=== PATIENT | male | born 1970 ===

== ENCOUNTER 2018-03-08 10:53 | Emergency (ER) | payer OTHER ==
[2018-03-08 11:00] VITALS: BP 127/86; PULSE 97; RESP 20; TEMP 98.6; O2SAT 96
[2018-03-08] MEDS ORDERED: Albuterol-Ipratrop 3 mg / 0.5 (3 ml) UD ONE ×2 (11:52→12:11)
[2018-03-08] MEDS ORDERED: Albuterol-Ipratrop 3 mg / 0.5 (3 ml) UD INH STA ×2 (12:14→12:16)
--- NOTE | 2018-03-08 13:31 | ED PDOC ---
History of Present Illness History of Present Illness: 47 yo M, no PMHx presentes with 2 weeks of worsening cough. Pt states he was seen at [facility] but was not given any treatments or medication. PT admits to smoking heavily but states he wants to quit smoking. NO sick contacts. no recent travel, no recent illness. Pt states cough is productive of yellow sputum. HPI: Influenza Time Seen by Provider: 03/08/18 12:14 Chief Complaint: Cough, Cold, Congestion History Per: Patient Exam Limitations: no limitations Onset/Duration Of Symptoms: Days Symptoms include: bodyaches, sore throat, cough Sick Contacts (Context): None Hx Influenza Vaccination: No Past Medical History Vital Signs: Last Vital Signs Temp 98.6 F 03/08/18 10:59 Pulse 97 H 03/08/18 10:59 Resp 20 03/08/18 10:59 BP 127/86 03/08/18 10:59 Pulse Ox 96 03/08/18 10:59 - Medical History PMH: Back Problems, Bipolar Disorder, Depression, Schizophrenia Denies: Diabetes, Hepatitis, HIV, HTN, Chronic Kidney Disease, Seizures, Sexually Transmitted Disease - Family History Family History: States: Unknown Family Hx - Social History Current smoker - smoking cessation education provided: Yes SMOKER/PACKS PER DAY:: 1 Alcohol: Social Drugs: Denies - Immunization History Hx Tetanus Toxoid Vaccination: No Hx Influenza Vaccination: No Hx Pneumococcal Vaccination: No - Home Medications Home Medications: Ambulatory Orders Medication Instructions Recorded PARoxetine [Paxil] 20 mg PO DAILY #0 tab 01/26/15 Oxycodone HCl/Acetaminophen 1 tab PO Q6 PRN 03/12/16 [Endocet 325 mg-10 mg] busPIRone [Buspar] 20 mg PO DAILY 03/12/16 Albuterol HFA [Ventolin HFA 90 1 puff IH Q4 #1 inhaler 01/01/18 mcg/actuation (8 g)] Benzonatate [Tessalon Perles] 200 mg PO TID PRN #15 sgl 01/01/18 Ibuprofen [Motrin] 600 mg PO Q6 #30 tab 01/01/18 predniSONE [Prednisone] 60 mg PO DAILY #12 tab 01/01/18 Albuterol HFA [Ventolin HFA 90 2 puff IH [id number] #1 pump 03/08/18 mcg/actuation (8 g)] Azithromycin [Z-Oh] 250 mg PO DAILY #6 tab 03/08/18 Nicotine [Nicotine Patch] 1 each TD TID #90 patch.td24 03/08/18 - Allergies Allergies/Adverse Reactions: Allergies Allergy/AdvReac Type Severity Reaction Status Date / Time No Known Allergies Allergy Verified 03/12/16 16:27 Medical Decision Making Medical Decision Making: Bronchitis. -CXR normal. -Influenza negative. Symptoms improved with duonebs. Return parameters discussed. - ECG O2 Sat by Pulse Oximetry: 96 Disposition - Clinical Impression Clinical Impression: Chronic cough - Disposition Disposition Time: 13:15 Condition: IMPROVED Additional Instructions: Take antibiotics as prescribed. Use Nicotine patch to stop smoking. Follow up with primary medical doctor. Prescriptions: Albuterol HFA [Ventolin HFA 90 mcg/actuation (8 g)] 2 puff IH [id number] #1 pump Azithromycin [Z-Oh] 250 mg PO DAILY #6 tab Nicotine [Nicotine Patch] 1 each TD TID #90 patch.td24 Instructions: Acute Bronchitis, Adult (DC), Cough, Runny Nose, and the Common Cold (DC) Forms: [employer] (Korean) Print Language: [place] ISLANDER
--- NOTE | 2018-03-08 13:59 | RAD ---
Date of service: 03/08/2018 HISTORY: Cough. COMPARISON: No prior. TECHNIQUE: Chest PA and lateral FINDINGS: LUNGS: No active pulmonary disease. PLEURA: No significant pleural effusion identified. No pneumothorax apparent. CARDIOVASCULAR: No radiographic findings to suggest acute or significant cardiovascular disease. OSSEOUS STRUCTURES: No significant abnormalities. VISUALIZED UPPER ABDOMEN: Normal. OTHER FINDINGS: None. IMPRESSION: No active disease.
== END 2018-03-08 13:34 | disposition home or self-care (01) ==
LOC: H.ER 10:53
DX: R05 Cough (principal)

== ENCOUNTER 2018-03-16 13:44 | Observation (INO) | payer OTHER ==
[2018-03-16] MEDS ORDERED: Sodium Chloride 0.9% 1,000 ML IV STA (14:31)
[2018-03-16] MEDS ORDERED: Albuterol-Ipratrop 3 mg / 0.5 (3 ml) UD IH STA ×2 (14:32→14:33)
[2018-03-16] MEDS ORDERED: Albuterol-Ipratrop 3 mg / 0.5 (3 ml) UD INH STA (14:32)
--- NOTE | 2018-03-16 14:39 | ED PDOC ---
HPI: SOB/CHF/COPD Time Seen by Provider: 03/16/18 14:26 Chief Complaint (Nursing): Shortness Of Breath Chief Complaint (Provider): Dyspnea History Per: Patient History/Exam Limitations: no limitations Onset/Duration Of Symptoms: Days (3 months) Additional Complaint(s): Pt. with dyspnea, cough, yellow phlegm for 3 months, worse recently. No chest pain, headaches, dizziness. Has nasal congestion, runny nose. No abd pain. Seen recently and given zpak. Pt. did not feel better despite filling rx. Past Medical History Reviewed: Nursing Documentation, Vital Signs Vital Signs: Last Vital Signs Temp 97.5 F L 03/16/18 13:58 Pulse 109 H 03/16/18 13:58 Resp 18 03/16/18 13:58 BP 133/97 H 03/16/18 13:58 Pulse Ox 87 L 03/16/18 13:58 - Medical History PMH: Back Problems, Bipolar Disorder, Depression, Schizophrenia Denies: Diabetes, Hepatitis, HIV, HTN, Chronic Kidney Disease, Seizures, Sexually Transmitted Disease - Surgical History Surgical History: No Surg Hx - Family History Family History: States: Unknown Family Hx - Social History Current smoker - smoking cessation education provided: Yes Alcohol: None - Immunization History Hx Tetanus Toxoid Vaccination: No Hx Influenza Vaccination: No Hx Pneumococcal Vaccination: No - Home Medications Home Medications: Ambulatory Orders Medication Instructions Recorded PARoxetine [Paxil] 20 mg PO DAILY #0 tab 01/26/15 Oxycodone HCl/Acetaminophen 1 tab PO Q6 PRN 03/12/16 [Endocet 325 mg-10 mg] busPIRone [Buspar] 20 mg PO DAILY 03/12/16 Albuterol HFA [Ventolin HFA 90 1 puff IH Q4 #1 inhaler 01/01/18 mcg/actuation (8 g)] Benzonatate [Tessalon Perles] 200 mg PO TID PRN #15 sgl 01/01/18 Ibuprofen [Motrin] 600 mg PO Q6 #30 tab 01/01/18 predniSONE [Prednisone] 60 mg PO DAILY #12 tab 01/01/18 Albuterol HFA [Ventolin HFA 90 2 puff IH [id number] #1 pump 03/08/18 mcg/actuation (8 g)] Azithromycin [Z-Oh] 250 mg PO DAILY #6 tab 03/08/18 Nicotine [Nicotine Patch] 1 each TD TID #90 patch.td24 03/08/18 - Allergies Allergies/Adverse Reactions: Allergies Allergy/AdvReac Type Severity Reaction Status Date / Time No Known Allergies Allergy Verified 03/12/16 16:27 Review of Systems ROS Statement: Except As Marked, All Systems Reviewed And Found Negative Respiratory: Positive for: Cough, Shortness of Breath, Sputum, Wheezing Physical Exam - Reviewed Nursing Documentation Reviewed: Yes Vital Signs Reviewed: Yes - Physical Exam Appears: Positive for: Uncomfortable Head Exam: Positive for: ATRAUMATIC, NORMAL INSPECTION, NORMOCEPHALIC Skin: Positive for: Normal Color, Warm, DRY Eye Exam: Positive for: EOMI, Normal appearance, PERRL ENT: Positive for: Nasal Congestion Neck: Positive for: Normal, Painless ROM, Supple Cardiovascular/Chest: Positive for: Tachycardia Respiratory: Positive for: Decreased Breath Sounds, Wheezing. Negative for: Accessory Muscle Use Gastrointestinal/Abdominal: Positive for: Normal Exam, Soft. Negative for: Tenderness Back: Positive for: Normal Inspection. Negative for: L CVA Tenderness, R CVA Tenderness Extremity: Positive for: Normal ROM. Negative for: Tenderness, Pedal Edema Neurologic/Psych: Positive for: Alert, Oriented - Laboratory Results Result Diagrams: 03/16/18 15:14 - ECG ECG: Positive for: Interpreted By Me, Viewed By Me ECG Rhythm: Positive for: Sinus Tachycardia O2 Sat by Pulse Oximetry: 87 Pulse Ox Interpretation: Abnormal Interpretation Of Abnormal: improved with oxygen. - Radiology X-Ray: Read By Radiologist X-Ray Interpretation: No Acute Disease - Progress ED Course And Treament: 1526: Stable. AAOx3. Feels better. Oxygen level 96% with 2L nasal. Has no dyspnea currently. Is a heavy smoker. Spoke with Dr. Hampton. Will admit for Dr. Thomas. Wants antibiotics and states it is ok to give with acute bronchitis. - Critical Care Total Time (In Min): 30 Documented Critical Care: Time excludes all time spent performint seperately billable procedures Disposition - Clinical Impression Clinical Impression: Bronchitis, Dyspnea - Patient ED Disposition Is Patient to be Admitted: Yes Counseled Patient/Family Regarding: Studies Performed, Diagnosis - Disposition Disposition Time: 15:49 Condition: FAIR - Pt Status Changed To: Hospital Disposition Of: Observation - POA Present On Arrival: None
[2018-03-16] MEDS ORDERED: Albuterol-Ipratrop 3 mg / 0.5 (3 ml) UD ONE (14:40)
[2018-03-16 14:56] LABS: ABG ALLEN TEST YES; ARTERIAL BLOOD GAS HCO3 25.2 mmol/L (21-28); ARTERIAL BLOOD GAS O2 SAT 100.1 % (95-98); ARTERIAL BLOOD GAS PCO2 53 mm/Hg (35-45); ARTERIAL BLOOD GAS PH 7.32 (7.35-7.45); ARTERIAL BLOOD GAS PO2 110 mm/Hg (80-100); ARTERIAL BLOOD GAS TCO2 28.9 mmol/L (22-28)
--- NOTE | 2018-03-16 14:56 | RAD ---
Date of service: 03/16/2018 HISTORY: Sepsis Patient COMPARISON: 03/08/2018. FINDINGS: LUNGS: The lungs are well inflated and clear. PLEURA: No pleural effusions or pneumothorax. CARDIOVASCULAR: The heart is normal in size. No aortic atherosclerotic calcification present. OSSEOUS STRUCTURES: Within normal limits for the patient's age. VISUALIZED UPPER ABDOMEN: Normal. OTHER FINDINGS: None. IMPRESSION: No active pulmonary disease.
[2018-03-16] MEDS ORDERED: Azithromycin 500 MG IV IVPB ONE (15:29)
[2018-03-16 15:47] LABS: BASO % 0.5 % (0.0-2.0); EOS # 0.9 K/uL (0.0-0.7); EOS % 8.5 % (0.0-4.0); HEMOGLOBIN 14.3 g/dL (12.0-18.0); LYMPH # 2.5 K/uL (1.0-4.3); LYMPH % 24.3 % (20.0-40.0); MEAN CELL VOLUME 94.9 fl (80.0-94.0); MEAN CORPUSCULAR HEMOGLOBIN 32.9 pg (27.0-31.0); MEAN CORPUSCULAR HGB CONC 34.7 g/dL (33.0-37.0); MEAN PLATELET VOLUME 8.6 fl (7.2-11.7); MONO # 0.7 K/uL (0.0-0.8); MONO % 7.2 % (0.0-10.0); NEUT # 6.2 K/uL (1.8-7.0); NEUT % 59.5 % (50.0-75.0); NRBC % 0.3 % (0.0-0.0); RBC 4.34 Mil/uL (4.40-5.90); RED CELL DISTRIBUTION WIDTH 13.3 % (11.5-14.5); WHITE BLOOD COUNT 10.4 K/uL (4.8-10.8)
[2018-03-16 15:51] LABS: ALB/GLOB RATIO 1.1 (1.0-2.1); ALBUMIN 4.2 g/dL (3.5-5.0); ALT/SGPT 25 U/L (21-72); AST/SGOT 26 U/L (17-59); B-TYPE NATRIURETIC PEPTIDE 47.8 pg/ml (0-450); BLOOD UREA NITROGEN 10 mg/dl (9-20); CALCIUM 9.6 mg/dL (8.4-10.2); GFR NON-AFRICAN AMERICAN > 60
[2018-03-16 16:54] LABS: INR 1.1; PROTHROMBIN TIME 12.1 Seconds (9.8-13.1)
[2018-03-16 16:57] LABS: PARTIAL THROMBOPLASTIN TIME 33.4 Seconds (25.6-37.1)
[2018-03-16] MEDS ORDERED: Oxycodone/Acetaminophen 5/325 mg Tab ONE (20:46)
[2018-03-16] MEDS: Oxycodone/Acetaminophen 5/325 mg Tab PO PRN (20:48)
[2018-03-16] MEDS ORDERED: methylPREDNISolone 40 MG in Sodium Chloride 0.9% 50 ML IVPB SCH (22:00)
[2018-03-16] MEDS: MethylPREDNISolone 40 mg Vial IVP SCH (22:30)
[2018-03-16] MEDS: Albuterol-Ipratrop 3 mg / 0.5 (3 ml) UD INH SCH (23:13)
[2018-03-16] MEDS: Pantoprazole 40 MG in Sodium Chloride 0.9% 100 ML IVPB SCH (23:47)
[2018-03-17] MEDS: Oxycodone/Acetaminophen 5/325 mg Tab PO PRN ×2 (03:36→09:47)
[2018-03-17] MEDS: MethylPREDNISolone 40 mg Vial IVP SCH ×2 (03:38→09:48)
[2018-03-17] MEDS: Albuterol-Ipratrop 3 mg / 0.5 (3 ml) UD INH SCH ×3 (04:05→11:33)
[2018-03-17] MEDS: Pantoprazole 40 MG in Sodium Chloride 0.9% 100 ML IVPB SCH ×2 (04:40→09:51)
[2018-03-17 05:57] LABS: HEMOGLOBIN 13.5 g/dL (12.0-18.0); MEAN CELL VOLUME 95.9 fl (80.0-94.0); MEAN CORPUSCULAR HEMOGLOBIN 32.7 pg (27.0-31.0); MEAN CORPUSCULAR HGB CONC 34.1 g/dL (33.0-37.0); RBC 4.12 Mil/uL (4.40-5.90); WHITE BLOOD COUNT 9.6 K/uL (4.8-10.8)
[2018-03-17 06:21] LABS: ALB/GLOB RATIO 1.1 (1.0-2.1); ALBUMIN 3.7 g/dL (3.5-5.0); ALT/SGPT 19 U/L (21-72); AST/SGOT 24 U/L (17-59); BLOOD UREA NITROGEN 14 mg/dl (9-20); CALCIUM 9.4 mg/dL (8.4-10.2); GFR NON-AFRICAN AMERICAN > 60
[2018-03-17 06:24] LABS: T4 7.45 ug/dl (5.5-11.0)
[2018-03-17] MEDS ORDERED: Pneumococcal 23-Valent Vaccine IM ONE (06:30)
[2018-03-17] MEDS ORDERED: Influenza Vaccine (5 YR UP)/PF 60 MCG/0.5 ML SYR IM ONE (06:30)
[2018-03-17 06:33] LABS: URINE BILIRUBIN NEGATIVE (NEGATIVE); URINE BLOOD NEGATIVE (NEGATIVE); URINE CLARITY CLEAR (Clear); URINE COLOR STRAW (YELLOW); URINE GLUCOSE (UA) >=500 mg/dL (Normal); URINE LEUKOCYTE ESTERASE NEG Leu/uL (Negative); URINE PROTEIN NEGATIVE (NEGATIVE); URINE UROBILINOGEN 0.2-1.0 mg/dL (0.2-1.0)
[2018-03-17] MEDS ORDERED: buPROPion SR 150 MG TABLET PO SCH (09:00)
[2018-03-17] MEDS ORDERED: Azithromycin 500 MG in Sodium Chloride 0.9% 250 ML IVPB SCH (09:00)
[2018-03-17] MEDS ORDERED: Sodium Chloride 3% for Inhalation 4 ML VIAL.NEB IH PRN (09:21)
[2018-03-17 10:37] VITALS: RESP 18
[2018-03-17 11:53] VITALS: BP 106/69; PULSE 104; TEMP 97.5; O2SAT 97
--- NOTE | 2018-03-17 16:26 | CP.PCM.HP ---
History of Present Illness - History of Present Illness History of Present Illness: CC: SOB. 47 y/o M, H PMHx. Bipolar Disorder, Depression, Schizophrenia, Chronic back pain 2nd to herniated disk (as per Pt). Pt came to [facility] on 03/16/18 for evaluation of gradually increased SOB that began about 3 months ago with no relief, associated to wheezing and cough with small amount of whitish sputum, non bloody. Worsening symptoms: Chronic back pain, increased when coughing. Aggravated factor: Walking. Pt denied: Fever, chills, n/v/d, abdominal pain, urinary symptoms, CP, palpitations, dyspnea, dizziness, headache, sick contact. CXR: No active pulmonary disease. Present on Admission - Present on Admission Any Indicators Present on Admission: No Review of Systems - Constitutional Constitutional: Other (negative) - EENT Eyes: Other (negative) Ears: Other (negative) Nose/Mouth/Throat: Other (negative) - Cardiovascular Cardiovascular: Other (negative) - Respiratory Respiratory: Cough, Dyspnea, Wheezing, Chest Congestion - Gastrointestinal Gastrointestinal: Other (negative) - Genitourinary Genitourinary: Other (negative) - Musculoskeletal Musculoskeletal: Back Pain - Integumentary Integumentary: Other (negative) - Neurological Neurological: Other (negative) - Psychiatric Psychiatric: Anxiety - Endocrine Endocrine: Other (negative) - Hematologic/Lymphatic Hematologic: Other (negative) Past Patient History - Infectious Disease Hx of Infectious Diseases: None - Past Medical History & Family History Past Medical History?: Yes Pertinent Family History: Unknown - Past Social History Smoking Status: Current Some Days Smoker (Pt admits current heavy smoker in his last vist to [facility] on 03/08/18.) Alcohol: None Drugs: Denies Home Situation {Lives}: Alone - CARDIAC Hx Cardiac Disorders: No - PULMONARY Hx Respiratory Disorders: Yes Hx Bronchitis: Yes - NEUROLOGICAL Hx Neurological Disorder: No Hx Seizures: No - HEENT Hx HEENT Problems: No - RENAL Hx Chronic Kidney Disease: No - ENDOCRINE/METABOLIC Hx Endocrine Disorders: No - HEMATOLOGICAL/ONCOLOGICAL Hx Blood Disorders: No Hx Human Immunodeficiency Virus (HIV): No - INTEGUMENTARY Hx Dermatological Problems: No - MUSCULOSKELETAL/RHEUMATOLOGICAL Hx Musculoskeletal Disorders: Yes Hx Falls: Yes Hx Herniated Disk: Yes - GASTROINTESTINAL Hx Gastrointestinal Disorders: No - GENITOURINARY/GYNECOLOGICAL Hx Genitourinary Disorders: No Hx Sexually Transmitted Disorders: No - PSYCHIATRIC Hx Psychophysiologic Disorder: Yes Hx Bipolar Disorder: Yes Hx Depression: Yes Hx Schizophrenia: Yes Hx Substance Use: No - SURGICAL HISTORY Hx Surgeries: No - ANESTHESIA Hx Anesthesia: No Meds Home Medications: Home Medication List Medication Instructions Recorded Confirmed Type Albuterol/Ipratropium [Duoneb 3 3 ml INH RQ4 #90 neb 03/17/18 Rx mg/0.5 mg (3 ml) UD] Azithromycin [Zithromax] 500 mg PO DAILY #5 tablet 03/17/18 Rx Pantoprazole [Protonix] 40 mg PO DAILY #30 ect 03/17/18 Rx oxyCODONE/Acetaminophen [Percocet 1 tab PO Q6 PRN #20 tab 03/17/18 Rx 5/325 mg Tab] predniSONE [predniSONE Tab] 5 mg PO DAILY #56 tab 03/17/18 Rx Allergies/Adverse Reactions: Allergies Allergy/AdvReac Type Severity Reaction Status Date / Time No Known Allergies Allergy Verified 03/12/16 16:27 Physical Exam - Constitutional Appears: No Acute Distress - Head Exam Head Exam: NORMAL INSPECTION - Eye Exam Eye Exam: PERRL - ENT Exam ENT Exam: Normal Exam - Neck Exam Neck exam: Positive for: Normal Inspection - Respiratory Exam Respiratory Exam: Decreased Breath Sounds (at bases), Rhonchi (few at bases). absent: Wheezes - Cardiovascular Exam Cardiovascular Exam: REGULAR RHYTHM - GI/Abdominal Exam GI & Abdominal Exam: Normal Bowel Sounds, Soft - Extremities Exam Extremities exam: Positive for: normal inspection - Back Exam Back exam: NORMAL INSPECTION - Neurological Exam Neurological exam: Alert, Oriented x3 Additional comments: No motor/sensory deficit - Psychiatric Exam Psychiatric exam: Anxious - Skin Skin Exam: Warm Results - Vital Signs Recent Vital Signs: Last Vital Signs Temp 97.5 F L 03/17/18 11:51 Pulse 104 H 03/17/18 11:51 Resp 18 03/17/18 11:51 BP 106/69 03/17/18 11:51 Pulse Ox 97 03/17/18 11:51 reviewed Brooke - Labs Result Diagrams: 03/17/18 05:20 03/17/18 05:20 Labs: Laboratory Results - last 24 hr 03/16/18 03/16/18 03/17/18 15:40 16:40 05:20 WBC 9.6 RBC 4.12 L Hgb 13.5 Hct 39.5 MCV 95.9 H MCH 32.7 H MCHC 34.1 RDW 13.0 Plt Count 330 PT 12.1 INR 1.1 APTT 33.4 Sodium Potassium Chloride Carbon Dioxide Anion Gap BUN Creatinine Est GFR ( Amer) Est GFR (Non-Af Amer) Random Glucose Calcium Total Bilirubin AST ALT Alkaline Phosphatase Total Protein Albumin Globulin Albumin/Globulin Ratio Triglycerides Cholesterol LDL Cholesterol Direct HDL Cholesterol Thyroxine (T4) TSH 3rd Generation Urine Color Urine Clarity Urine pH Ur Specific [place] Urine Protein Urine Glucose (UA) Urine Ketones Urine Blood Urine Nitrate Urine Bilirubin Urine Urobilinogen Ur Leukocyte Esterase Urine RBC (Auto) Urine Microscopic WBC Influenza Typ A,B (EIA) Negative for flu a/b 03/17/18 03/17/18 03/17/18 05:20 05:20 06:00 WBC RBC Hgb Hct MCV MCH MCHC RDW Plt Count PT INR APTT Sodium 139 Potassium 4.2 Chloride 106 Carbon Dioxide 26 Anion Gap 11 BUN 14 Creatinine 0.6 L Est GFR ( Amer) > 60 Est GFR (Non-Af Amer) > 60 Random Glucose 183 H Calcium 9.4 Total Bilirubin 0.2 AST 24 ALT 19 L D Alkaline Phosphatase 55 Total Protein 7.0 Albumin 3.7 Globulin 3.4 Albumin/Globulin Ratio 1.1 Triglycerides 37 Cholesterol 171 LDL Cholesterol Direct 113 HDL Cholesterol 54 Thyroxine (T4) 7.45 TSH 3rd Generation 0.09 L Urine Color Straw Urine Clarity Clear Urine pH 7.0 Ur Specific [place] 1.012 Urine Protein Negative Urine Glucose (UA) >=500 Urine Ketones Negative Urine Blood Negative Urine Nitrate Negative Urine Bilirubin Negative Urine Urobilinogen 0.2-1.0 Ur Leukocyte Esterase Neg Urine RBC (Auto) 1 Urine Microscopic WBC < 1 Influenza Typ A,B (EIA) reviewed J.P. - Imaging and Cardiology Chest x-ray Status: Report reviewed by me (J.P.) Assessment & Plan (1) COPD exacerbation Status: Acute Priority: High (2) Chronic back pain Status: Chronic Priority: High (3) History of depression Status: Chronic Priority: Medium (4) Anxiety Status: Chronic Priority: Medium - Assessment and Plan (Free Text) Plan: Pt improved with Zithormax, Ceftriaxone, Duoneb, Solu-Medrol, Pt is stable to be discharged, see instruction medications HELEN, f/u with PMD, Dr Connelly in a week. - Date & Time Date: 03/17/18 Time: 13:00
--- NOTE | 2018-03-17 19:31 | CARD ---
APPROVED REPORT Date of service: 03/16/2018 EKG Measurement Heart [id number] <Conclusion> Normal sinus rhythm Left atrial enlargement Right axis deviation Incomplete right bundle branch block Abnormal ECG
== END 2018-03-17 13:48 | disposition home or self-care (01) ==
LOC: H.ER 13:44 → H.ERHOLD 15:25 → H.TEL 21:17
PROVIDERS: ADMIT Internal Medicine Pulmonary Disease; ATTEND Internal Medicine Pulmonary Disease
DX: J44.1 Chronic obstructive pulmonary disease with (acute) exacerbation (principal); G89.29 Other chronic pain; F31.9 Bipolar disorder, unspecified; F20.9 Schizophrenia, unspecified; F17.200 Nicotine dependence, unspecified, uncomplicated; F41.9 Anxiety disorder, unspecified; Z23 Encounter for immunization
CPT/HCPCS: 36415; 71045; 80053; 80061; 81003; 82803; 83735; 83880; 84100; 84436; 84443; 84484; 85025; 85027; 85610; 85730; 87040; 87070; 87086; 87804; 90471; 90732; 93005; 94640; 96374; 99282; C9113; G0008; G0378; J0456; J0696; J1885; J2920; J2930; J7030; Q2035

== ENCOUNTER 2018-05-03 06:34 | Emergency (ER) | payer OTHER ==
[2018-05-03] MEDS ORDERED: Albuterol-Ipratrop 3 mg / 0.5 (3 ml) UD IH STA ×2 (07:20→07:21)
--- NOTE | 2018-05-03 07:23 | ED PDOC ---
HPI: SOB/CHF/COPD Time Seen by Provider: 05/03/18 07:15 Chief Complaint (Nursing): Shortness Of Breath History Per: Patient Onset/Duration Of Symptoms: Persistent Current Symptoms Are (Timing): Still Present Severity: Moderate Associated Symptoms: denies: Fever, Leg/Calf Pain Additional Complaint(s): Non productive cough assoc with SOB and wheezing x few months. Denies fever or chest pain. C/o chronic low back pain, requesting Percocet. Past Medical History Vital Signs: Last Vital Signs Temp 98.3 F 05/03/18 06:55 Pulse 109 H 05/03/18 06:55 Resp 20 05/03/18 06:55 BP 127/75 05/03/18 06:55 Pulse Ox 90 L 05/03/18 06:55 - Medical History PMH: Back Problems, Bipolar Disorder, Bronchitis, Depression, Schizophrenia Denies: Diabetes, Hepatitis, HIV, HTN, Chronic Kidney Disease, Seizures, Sexually Transmitted Disease - Family History Family History: States: Unknown Family Hx - Immunization History Hx Tetanus Toxoid Vaccination: No Hx Influenza Vaccination: No Hx Pneumococcal Vaccination: No - Home Medications Home Medications: Ambulatory Orders Medication Instructions Recorded Albuterol HFA [Ventolin HFA 90 2 puff IH Q4 PRN 03/16/18 mcg/actuation (8 g)] Bupropion HCl [Bupropion Xl] 150 mg PO DAILY 03/16/18 OLANZapine [Zyprexa] 10 mg PO HS 03/16/18 Paroxetine HCl [Paxil] 40 mg PO QAM 03/16/18 hydrOXYzine HCl [Atarax] 50 mg PO HS 03/16/18 Albuterol/Ipratropium [Duoneb 3 3 ml INH RQ4 #90 neb 03/17/18 mg/0.5 mg (3 ml) UD] Azithromycin [Zithromax] 500 mg PO DAILY #5 tablet 03/17/18 Pantoprazole [Protonix] 40 mg PO DAILY #30 ect 03/17/18 oxyCODONE/Acetaminophen [Percocet 1 tab PO Q6 PRN #20 tab 03/17/18 5/325 mg Tab] predniSONE [predniSONE Tab] 5 mg PO DAILY #56 tab 03/17/18 Albuterol HFA [Ventolin HFA 90 2 puff IH Q4H #1 puff 05/03/18 mcg/actuation (8 g)] Azithromycin [Zithromax] 250 mg PO DAILY #6 tab 05/03/18 Prednisone 50 mg PO DAILY #5 tab 05/03/18 oxyCODONE/Acetaminophen [Percocet 1 ea PO Q8 #6 tab 05/03/18 5/325 mg Tab] - Allergies Allergies/Adverse Reactions: Allergies Allergy/AdvReac Type Severity Reaction Status Date / Time No Known Allergies Allergy Verified 03/12/16 16:27 Review of Systems ROS Statement: Except As Marked, All Systems Reviewed And Found Negative Constitutional: Negative for: Fever Respiratory: Positive for: Cough, Shortness of Breath, Wheezing. Negative for: Sputum Musculoskeletal: Positive for: Back Pain Physical Exam - Reviewed Nursing Documentation Reviewed: Yes Vital Signs Reviewed: Yes - Physical Exam Appears: Positive for: Non-toxic, No Acute Distress Head Exam: Positive for: ATRAUMATIC, NORMAL INSPECTION, NORMOCEPHALIC Skin: Positive for: Normal Color, Warm, DRY Eye Exam: Positive for: EOMI, Normal appearance, PERRL ENT: Positive for: Normal ENT Inspection Neck: Positive for: Normal, Painless ROM Cardiovascular/Chest: Positive for: Regular Rate, Rhythm Respiratory: Positive for: Rhonchi, Wheezing Gastrointestinal/Abdominal: Positive for: Normal Exam, Soft Back: Positive for: Normal Inspection, Muscle Spasm. Negative for: Vertebral Tenderness Extremity: Positive for: Normal ROM Neurologic/Psych: Positive for: Alert, Oriented - Laboratory Results Result Diagrams: 05/03/18 08:23 05/03/18 08:23 - ECG O2 Sat by Pulse Oximetry: 90 - Progress Re-evaluation Time: 11:00 Condition: Improved (Lungs scattered rhonchi no wheezing) Disposition - Clinical Impression Clinical Impression: Bronchitis, COPD exacerbation, Chronic back pain - Patient ED Disposition Is Patient to be Admitted: No Counseled Patient/Family Regarding: Studies Performed, Diagnosis, Need For Followup, Rx Given - Disposition Referrals: [facility] [Outside] Disposition: Routine/Home Disposition Time: 11:01 Condition: FAIR Prescriptions: Albuterol HFA [Ventolin HFA 90 mcg/actuation (8 g)] 2 puff IH Q4H #1 puff Azithromycin [Zithromax] 250 mg PO DAILY #6 tab oxyCODONE/Acetaminophen [Percocet 5/325 mg Tab] 1 ea PO Q8 #6 tab Prednisone 50 mg PO DAILY #5 tab Instructions: Acute Bronchitis, Chronic Pain (DC), Chronic Obstructive Pulmon rehan Disease (COPD), Including Emphysema Forms: [employer] ([place])
[2018-05-03] MEDS ORDERED: Albuterol-Ipratrop 3 mg / 0.5 (3 ml) UD ONE (08:34)
[2018-05-03 08:35] LABS: VENOUS BLOOD GAS PCO2 58 mmHg (40-60); VENOUS BLOOD GAS PO2 35 mm/Hg (30-55); VENOUS BLOOD PH 7.29 (7.32-7.43)
[2018-05-03 08:37] LABS: BASO # 0.1 K/uL (0.0-0.2); BASO % 0.9 % (0.0-2.0); EOS # 1.1 K/uL (0.0-0.7); EOS % 14.9 % (0.0-4.0); HEMOGLOBIN 13.8 g/dL (12.0-18.0); LYMPH # 1.1 K/uL (1.0-4.3); LYMPH % 15.6 % (20.0-40.0); MEAN CELL VOLUME 98.1 fl (80.0-94.0); MEAN CORPUSCULAR HEMOGLOBIN 32.7 pg (27.0-31.0); MEAN CORPUSCULAR HGB CONC 33.3 g/dL (33.0-37.0); MONO # 0.7 K/uL (0.0-0.8); MONO % 10.2 % (0.0-10.0); NEUT # 4.3 K/uL (1.8-7.0); NEUT % 58.4 % (50.0-75.0); NRBC % 0.1 % (0.0-0.0); RBC 4.21 Mil/uL (4.40-5.90); RED CELL DISTRIBUTION WIDTH 13.3 % (11.5-14.5); WHITE BLOOD COUNT 7.3 K/uL (4.8-10.8)
[2018-05-03 08:46] LABS: ALB/GLOB RATIO 1.3 (1.0-2.1); ALBUMIN 4.1 g/dL (3.5-5.0); ALT/SGPT 30 U/L (21-72); AST/SGOT 31 U/L (17-59); BLOOD UREA NITROGEN 8 mg/dl (9-20); CALCIUM 8.8 mg/dL (8.4-10.2); GFR NON-AFRICAN AMERICAN > 60
--- NOTE | 2018-05-03 09:39 | RAD ---
Date of service: 05/03/2018 HISTORY: cough COMPARISON: 03/16/2018 FINDINGS: LUNGS: The lungs are hyperinflated and there is peribronchial thickening with chronic changes in both lungs. A branching tubular opacity in the left upper lobe could represent mucous plugging. No focal consolidation. PLEURA: No pleural effusions or pneumothorax. CARDIOVASCULAR: The heart is normal in size. No aortic atherosclerotic calcification present. OSSEOUS STRUCTURES: Within normal limits for the patient's age. VISUALIZED UPPER ABDOMEN: Normal. OTHER FINDINGS: None. IMPRESSION: No active pulmonary disease. COPD.
[2018-05-03 12:26] VITALS: BP 115/84; PULSE 84; RESP 17; TEMP 98.4; O2SAT 97
--- NOTE | 2018-05-04 19:07 | CARD ---
APPROVED REPORT Date of service: 05/03/2018 EKG Measurement Heart [id number] <Conclusion> Sinus tachycardia Possible Left atrial enlargement Incomplete right bundle branch block Prolonged QT Abnormal ECG
== END 2018-05-03 11:20 | disposition home or self-care (01) ==
LOC: H.ER 06:34
DX: J40 Bronchitis, not specified as acute or chronic (principal); J44.1 Chronic obstructive pulmonary disease with (acute) exacerbation; M54.9 Dorsalgia, unspecified; G89.29 Other chronic pain; Z86.59 Personal history of other mental and behavioral disorders
CPT/HCPCS: 71045; 80053; 82803; 85025; 93005; 94150; 94640; 96374; 96375; 99284; J1885; J2930